=== PATIENT | male | born 1990 | race African-American/Black ===

== ENCOUNTER 2017-03-23 10:38 | Emergency (ER) | payer SELFPAY ==
--- NOTE | 2017-03-23 11:36 | RAD ---
LEFT INDEX FINGER THREE VIEWS: History: 26-year-old male with left index finger pain following trauma on February 23. FINDINGS: There is a minimally displaced chip-type avulsion fracture off the dorsal aspect of the base of the m iddle phalanx of the index finger with some minimal associated soft tissue swelling. No other acute f racture or dislocation. IMPRESSION: Small minimally displaced chip-type avulsion fracture off the dorsal base of the middle phalanx of th e index finger. POS: [facility]
[2017-03-23] MEDS ORDERED: HYDROcodone/Acetaminophen 10/325 mg Tablet ONE (12:17)
== END 2017-03-23 12:25 | disposition home or self-care (01) ==
LOC: ERS 10:38
DX: S62.621A Displaced fracture of middle phalanx of left index finger, initial encounter for closed fracture (principal); I10 Essential (primary) hypertension; J45.909 Unspecified asthma, uncomplicated; F17.210 Nicotine dependence, cigarettes, uncomplicated; X58.XXXA Exposure to other specified factors, initial encounter

== ENCOUNTER 2020-11-14 16:12 | Emergency (ER) | payer BC | END 2020-11-14 17:05 | disposition home or self-care (01) | LOC: ERS 16:12 | DX: K64.5 Perianal venous thrombosis (principal); I10 Essential (primary) hypertension; J45.909 Unspecified asthma, uncomplicated; F17.210 Nicotine dependence, cigarettes, uncomplicated | CPT/HCPCS: 99283 ==

== ENCOUNTER 2021-12-07 15:32 | Emergency (ER) | payer BC | END 2021-12-07 17:42 | disposition home or self-care (01) | LOC: ERS 15:32 | DX: K64.5 Perianal venous thrombosis (principal); I10 Essential (primary) hypertension; F17.210 Nicotine dependence, cigarettes, uncomplicated | CPT/HCPCS: 99282 ==